=== PATIENT | male | born 1995 | race Native Hawaiian/Other Pacific Islander ===

== ENCOUNTER 2017-12-29 21:24 | Emergency (ER) | payer SELFPAY ==
[2017-12-29 21:34] VITALS: BP 147/83; PULSE 99; RESP 20; TEMP 98.6; O2SAT 99
[2017-12-29] MEDS ORDERED: Tdap Vaccine 0.5 ml Vial (10-64 yrs) IM ONE ×2 (21:36→21:41)
--- NOTE | 2017-12-29 22:34 | ED PDOC ---
Lower Extremity Pain/Injury Time Seen by Provider: 12/29/17 21:35 Chief Complaint (Nursing): Lower Extremity Problem/Injury Chief Complaint (Provider): Stepped on nail - Left heel History Per: Patient History/Exam Limitations: no limitations Onset/Duration Of Symptoms: Other (prior to arrival) Current Symptoms Are (Timing): Still Present Additional Complaint(s): 22-year-old male presenting for evaluation of left foot injury prior to arrival. Patient states he stepped on a nail and injured his left heel. He reports last tetanus was over 10 years ago. Past Medical History Reviewed: Historical Data, Nursing Documentation, Vital Signs Vital Signs: Last Vital Signs Temp 98.6 F 12/29/17 21:32 Pulse 99 H 12/29/17 21:32 Resp 20 12/29/17 21:32 BP 147/83 12/29/17 21:32 Pulse Ox 99 12/29/17 21:32 - Medical History PMH: No Chronic Diseases - Surgical History Surgical History: No Surg Hx - Family History Family History: States: Unknown Family Hx - Immunization History Hx Tetanus Toxoid Vaccination: No - Home Medications Home Medications: Ambulatory Orders Medication Instructions Recorded Amoxicillin/Clavulanate [Augmentin 1 tab PO BID #20 tab 12/29/17 875 MG-125 MG] - Allergies Allergies/Adverse Reactions: Allergies Allergy/AdvReac Type Severity Reaction Status Date / Time No Known Allergies Allergy Verified 12/29/17 21:32 Review of Systems ROS Statement: Except As Marked, All Systems Reviewed And Found Negative Musculoskeletal: Positive for: Foot Pain (left) Skin: Positive for: Lesions (puncture wound to left heel) Physical Exam - Reviewed Nursing Documentation Reviewed: Yes Vital Signs Reviewed: Yes - Physical Exam Appears: Positive for: Non-toxic, No Acute Distress Head Exam: Positive for: ATRAUMATIC Skin: Positive for: Normal Color, Warm Eye Exam: Positive for: Normal appearance Neck: Positive for: Normal Respiratory: Negative for: Respiratory Distress Extremity: Positive for: Other (small puncture wound to left heel, no active bleeding) Neurologic/Psych: Positive for: Alert - ECG O2 Sat by Pulse Oximetry: 99 (RA) Pulse Ox Interpretation: Normal Medical Decision Making Medical Decision Making: Plan: -Tetanus -Left heel x-ray Applied antibiotic ointment and Band-Aid to wound. X-ray showed showed acute abnormalities. Scribe Attestation: Documented by Jaden Díaz, acting as a scribe for Jazmyne Cortes PA-C. Provider Scribe Attestation: All medical record entries made by the scribe were at my direction and personally dictated by me. I have reviewed the chart and agree that the record accurately reflects my personal performance of the history, physical exam, medical decision making, and the department course for this patient. I have also personally directed, reviewed, and agree with the discharge instructions and disposition. Disposition - Clinical Impression Clinical Impression: Nail entering through skin, initial encounter - Patient ED Disposition Is Patient to be Admitted: No Counseled Patient/Family Regarding: Diagnosis, Need For Followup, Rx Given - Disposition Referrals: Dustin Zurita MD [Staff Provider] - Disposition: Routine/Home Disposition Time: 22:32 Condition: GOOD Prescriptions: Amoxicillin/Clavulanate [Augmentin 875 MG-125 MG] 1 tab PO BID #20 tab Instructions: Foreign Body in Skin (DC) Forms: [employer] (Norwegian)
--- NOTE | 2017-12-30 09:45 | RAD ---
Date of service: 12/29/2017 PROCEDURE: Radiographs of the left calcaneus/hindfoot. HISTORY: stepped on nail COMPARISON: None available. TECHNIQUE: Frontal and lateral radiographs of the calcaneus. FINDINGS: No fracture or joint dislocation. No focal lesion. No calcaneal spur. IMPRESSION: Unremarkable radiographs of the left calcaneus /hindfoot.
== END 2017-12-29 22:40 | disposition home or self-care (01) ==
LOC: H.ER 21:24
DX: S91.332A Puncture wound without foreign body, left foot, initial encounter (principal); Z23 Encounter for immunization; W45.0XXA Nail entering through skin, initial encounter